=== PATIENT | male | born 1980 | race Caucasian/White ===

== ENCOUNTER 2021-12-09 06:29 | Emergency (ER) | payer MEDICAID ==
[~2021-12-09] VITALS: Ht 182.9 cm; Wt 111.1 kg
[~2021-12-09 06:29] MED LIST: ACET-285; CIPR-273; SULF-98
[2021-12-09] MEDS ORDERED: LISI20TA28 PO (07:13)
[2021-12-09] MEDS ORDERED: LISINOPRIL 20 MG TAB PO ONE (07:15)
[2021-12-09 07:19] VITALS: BP 159/108
== END 2021-12-09 07:43 | disposition home or self-care (01) ==
LOC: ER 06:29
DX: I10 Essential (primary) hypertension (principal); F15.10 Other stimulant abuse, uncomplicated; Z76.0 Encounter for issue of repeat prescription